=== PATIENT | female | born 1985 | race Caucasian/White ===

== ENCOUNTER 2017-11-28 22:25 | Inpatient (IN) | payer OTHER ==
[~2017-11-28] VITALS: Ht 157.5 cm; Wt 49.8 kg
--- NOTE | ~2017-11-28 | HC ---
[facility] [place] [address] CONSULTATION Name: ELISABETHNovember Room #: 206-P [facility] IN M.R.#: [id number] Admission: 11/29/17 Attend Phys: Olaf Gaitan MD Discharge: Date of : 85 Report #: [id number] THIS REPORT FOR: //name// CC: Sia Gaitan DATE OF SERVICE: 11/29/2017 NEPHROLOGY CONSULTATION ATTENDING PHYSICIAN: Dr. Gaitan. REASON FOR CONSULTATION: End-stage renal disease and hyperkalemia. HISTORY OF PRESENT ILLNESS: The patient had a PD catheter placed 8 days ago. Initially complicated by air in the PD cavity with right shoulder pain, which resolved and developing nausea, vomiting and mid-to-left lower quadrant abdominal pain, which persisted along with constipation. PAST MEDICAL HISTORY: End-stage renal disease, long-standing with thin basement membrane/Alport disease within her family with progressive chronic kidney disease, resulting in the PD catheter placement 8 days ago. She has had 3 children. FAMILY HISTORY: Strongly positive for progressive renal disease, both females and males, which is unusual for this diagnosis, including a sister who also had a biopsy that showed FSGS, which is a bit puzzling. SOCIAL HISTORY: She is a smoker and continues to smoke. Three children at home, as mentioned. REVIEW OF SYSTEMS: GENERAL: She has been feeling poorly since the PD catheter placement. EYES: Vision okay. ENT: Hearing okay, swallows okay. No mouth ulcers. ENDOCRINE: No diabetes or thyroid disease. RESPIRATORY: No shortness of breath, wheezing or pleuritic pain. CARDIAC: No chest pain, angina or palpitations. GASTROINTESTINAL: She has had the nausea, vomiting and constipation. No bloody stools. GENITOURINARY: Continues to have some urine output, without dysuria or hematuria. NEUROLOGIC: Some symptoms of neuropathy in the left foot. Extensive history taken from the patient's electronic medical record. PHYSICAL EXAMINATION: [facility] [address] [place] [address] CONSULTATION Name: ELISABETHNovember Room #: 206-P [facility] IN [facility]#: [id number] Admission: 11/29/17 Attend Phys: Olaf Gaitan MD Discharge: Date of : 85 Report #: [id number] VITAL SIGNS: This patient is reasonably well appearing, in bed. SKIN: Unremarkable. SKELETAL: Thin. HEENT: Extraocular movements are full. Vision is intact. No scleral icterus. Hearing intact. Mucous membranes moist. Tongue, buccal mucosa benign. NECK: Supple. CHEST: Clear to auscultation. HEART: Regular without murmurs, gallops or rubs. ABDOMEN: Soft, but tender and quiet, particularly in the mid and left lower quadrant. EXTREMITIES: Show no edema. Good pulses. NEUROLOGIC: Grossly intact. LABORATORY DATA: Sodium 135, potassium 6.4, chloride 101, bicarbonate 25, BUN 59 and creatinine 5.6. ASSESSMENT AND PLAN: 1. Abdominal pain, nausea and vomiting. I am somewhat concerned she might have an intra-abdominal infection. We will be checking her PD fluid. We will start her on low flow PD, try to clear her hyperkalemia and run her overnight on a continuous slow-flow PD. 2. End-stage renal disease. She was going to start PD next week anyway. This is a little bit early, but seems necessary as we need to check her PD fluid and she does seem to be uremic. 3. Cigarette smoking. DICTATION ENDS HERE. By: [id number] Mat Eid MD /nt
--- NOTE | ~2017-11-28 | EKG ---
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
[~2017-11-28 22:25] MED LIST: APAP500 PO; DERMOPLAST SPRA56 ML; FISH OIL 1,001000 M2 PO; GLUCOSAMINE SU500 M2 PO; HYDROCODON-ACE1 EAC7 PO; IBUPROFEN 600600 M1 PO; IBUPROFEN 800800 M1 PO; IRON325 PO; PRENATAL PO; TUCKS MEDICATE1 EAC1; TUMS PO; ZANTAC 150MG T150 MG PO
[2017-11-28 22:28] VITALS: BP 151/101
[2017-11-28] MEDS ORDERED: PRINIVIL20 MG PO (22:34)
[2017-11-28 22:56] LABS: BASOPHILS 0.4 % (0.0-2.0); EOSINOPHILS 6.8 % (0.0-3.0); HEMATOCRIT 36.6 % (37.0-47.0); HEMOGLOBIN 12.1 gm/dL (12.0-15.0); LYMPHOCYTES 14.1 % (24.0-44.0); MCH 29.8 pg (26.0-34.0); MCV 90.3 fL (80.0-100.0); MONOCYTES 3.8 % (1.0-8.0); PLATELET COUNT 238 thou/uL (150-400); POLYS 74.9 % (36.0-66.0); RBC 4.05 mil/uL (4.20-5.00); WBC 13.3 thou/uL (4.0-11.0)
[2017-11-28 23:03] LABS: CALCIUM 9.9 mg/dL (8.5-10.1); CREATININE 5.5 mg/dL (0.6-1.0)
[2017-11-28 23:08] LABS: POTASSIUM 6.7 mmol/L (3.5-5.1)
[2017-11-28 23:09] LABS: ALBUMIN 3.8 g/dL (3.4-5.0); TOTAL BILIRUBIN 0.3 mg/dL (<0.1-1.0); TOTAL PROTEIN 8.5 g/dL (6.4-8.2)
[2017-11-29] VITALS (7 sets, daily range): BP systolic 100–149; BP diastolic 52–90
[2017-11-29 04:27] LABS: HEMATOCRIT 28.6 % (37.0-47.0); MCH 30.8 pg (26.0-34.0); MCHC 33.9 g/dL (28.0-37.0); RBC 3.14 mil/uL (4.20-5.00); RDW 12.6 % (10.5-14.5); WBC 9.4 thou/uL (4.0-11.0)
[2017-11-29 04:42] LABS: HEMOGLOBIN 9.7 gm/dL (12.0-15.0)
[2017-11-29 04:48] LABS: ALBUMIN 2.9 g/dL (3.4-5.0); CALCIUM 8.8 mg/dL (8.5-10.1); CREATININE 5.6 mg/dL (0.6-1.0); PHOSPHORUS 3.6 mg/dL (2.5-4.9)
[2017-11-29 04:50] LABS: POTASSIUM 6.4 mmol/L (3.5-5.1)
[2017-11-29 17:09] LABS: CLARITY SLIGHTLY CLOUDY; COLOR AMBER; SOURCE PERIT DIALYSIS; TOTAL VOLUME 180 mL
[2017-11-29 18:22] LABS: BF NUCLEATED CELLS 122; BF RBC 668
[2017-11-29 18:24] LABS: BF NEUTROPHILS 11
[2017-11-29 18:25] LABS: BF MACROPHAGE 47
[2017-11-30 03:40] LABS: HEMATOCRIT 26.1 % (37.0-47.0); HEMOGLOBIN 8.7 gm/dL (12.0-15.0); MCH 30.3 pg (26.0-34.0); MCHC 33.3 g/dL (28.0-37.0); RBC 2.87 mil/uL (4.20-5.00); RDW 12.6 % (10.5-14.5); WBC 6.8 thou/uL (4.0-11.0)
[2017-11-30 03:54] LABS: ALBUMIN 2.5 g/dL (3.4-5.0); CALCIUM 8.6 mg/dL (8.5-10.1); PHOSPHORUS 4.7 mg/dL (2.5-4.9)
[2017-11-30 03:56] LABS: CREATININE 4.6 mg/dL (0.6-1.0); POTASSIUM 5.2 mmol/L (3.5-5.1)
[2017-11-30 04:12] LABS: URINE BILIRUBIN NEGATIVE (Negative); URINE BLOOD TRACE (Negative); URINE CLARITY CLEAR; URINE COLOR YELLOW; URINE GLUCOSE-RANDOM* NEGATIVE (Negative); URINE KETONES NEGATIVE (Negative); URINE LEUKOCYTES-REFLEX NEGATIVE (Negative); URINE NITRITE-REFLEX NEGATIVE (Negative); URINE PROTEIN (DIPSTICK) 2+ (Negative); URINE UROBILINOGEN 0.2 E.U./dl (0.2-1.0)
[2017-11-30 04:34] LABS: BACTERIA-REFLEX None Seen /HPF (None Seen); CASTS None Seen /LPF (None Seen); CRYSTALS None Seen /LPF (None Seen); MUCUS None Seen strn/LPF (None Seen); SQUAMOUS 0-3 Few /LPF (0-3); URINE RBC 0-2 Rare /HPF (0-2); URINE WBC-REFLEX 0-5 Rare /HPF (0-5)
[2017-11-30 05:54] VITALS: BP 121/68
[2017-11-30 08:12] VITALS: BP 142/77
[2017-11-30 11:21] VITALS: BP 121/81
[2017-11-30 15:48] VITALS: BP 131/78
[2017-11-30 19:40] VITALS: BP 140/87
[2017-12-01 03:11] LABS: HEMATOCRIT 26.9 % (37.0-47.0); HEMOGLOBIN 9.1 gm/dL (12.0-15.0); MCH 30.5 pg (26.0-34.0); MCHC 33.7 g/dL (28.0-37.0); MCV 90.5 fL (80.0-100.0); RBC 2.97 mil/uL (4.20-5.00); RDW 12.5 % (10.5-14.5)
[2017-12-01 03:27] LABS: ALBUMIN 2.6 g/dL (3.4-5.0); CALCIUM 8.6 mg/dL (8.5-10.1); CREATININE 4.7 mg/dL (0.6-1.0); PHOSPHORUS 3.9 mg/dL (2.5-4.9)
[2017-12-01 04:27] VITALS: BP 114/81
[2017-12-01 07:50] LABS: SOURCE PERITONEAL; TOTAL VOLUME 60 mL
[2017-12-01 07:51] LABS: COLOR COLORLESS
[2017-12-01 07:52] LABS: CLARITY TURBID
[2017-12-01 08:00] VITALS: BP 131/81
[2017-12-01 08:11] LABS: BF NUCLEATED CELLS 13; BF RBC 82
[2017-12-01 08:58] LABS: BF MACROPHAGE 22; BF NEUTROPHILS 2
[2017-12-01] MEDS ORDERED: PERCOCET PO (10:10)
[2017-12-01] MEDS ORDERED: MIRALAX17 GM PO (10:10)
[2017-12-01] MEDS ORDERED: SENNA-TIME S T1 EACH PO (10:10)
[2017-12-01] MEDS ORDERED: PEPCID20 MG PO (10:11)
[2017-12-01 11:36] VITALS: BP 131/81
== END 2017-12-01 12:04 | disposition home or self-care (01) | DRG 388 ==
LOC: ER 22:25 → 2N 11-29 00:17 → EROBS 11-29 00:17 → 2N 11-29 00:42 → ENTRNSPT 12-01 12:00 → 2N 12-01 12:04
PROVIDERS: Emergency Medicine; Hospitalist; Internal Medicine Nephrology; Nurse Practitioner Family
PROC: 3E1M39Z Irrigation of Peritoneal Cavity using Dialysate, Percutaneous Approach (ICD-10-PCS; principal; 2017-11-29)
PROC: 3E1M39Z Irrigation of Peritoneal Cavity using Dialysate, Percutaneous Approach (ICD-10-PCS; 2017-11-30)
DX: K56.7 Ileus, unspecified (principal); N18.6 End stage renal disease; Q87.81 Alport syndrome; K59.00 Constipation, unspecified; E87.5 Hyperkalemia; F17.210 Nicotine dependence, cigarettes, uncomplicated; Z84.1 Family history of disorders of kidney and ureter; E03.9 Hypothyroidism, unspecified
CPT/HCPCS: 10081

== ENCOUNTER 2019-01-06 12:56 | Inpatient (IN) | payer OTHER ==
[~2019-01-06] VITALS: Ht 157.5 cm; Wt 53.1 kg
[~2019-01-06 12:56] MED LIST changes: +MIRALAX17 GM PO; +PEPCID20 MG PO; +PERCOCET PO; +PRINIVIL20 MG PO; +SENNA-TIME S T1 EACH PO
[2019-01-06] MEDS ORDERED: RENVELA800 MG PO (14:37)
[2019-01-06] MEDS ORDERED: AMLODIPINE BESY10 MG PO (14:38)
[2019-01-06] MEDS ORDERED: NEPHRO-VITE TA0.8 MG PO (14:38)
[2019-01-06] MEDS ORDERED: SERTRALINE HCL50 MG PO (14:40)
[2019-01-06] MEDS ORDERED: KAPSPARGO SPRIN25 MG PO (14:40)
[2019-01-06] MEDS ORDERED: RANITIDINE 150150 M1 PO (14:41)
[2019-01-06] MEDS ORDERED: COZAAR 25 MG TA25 M1 PO ×2 (14:42→14:43)
[2019-01-06] MEDS ORDERED: SORBITOL1 ML PO (14:45)
[2019-01-06] MEDS ORDERED: MIRALAX17 GM PO (14:45)
--- NOTE | 2019-01-06 14:48 | NUR ---
REC PT AROUND 1345, PHYSICIAN VISITED W/HER, BF SHOWED UP, AND DR. CASTORENA CALLED IN WITH ORDERS STATING PD NURSE WILL SHOW UP TO ASPIRATE FLUID FOR CULTURES, LABS, ETC, ENTERED ORDERS FOR A.M. RUN. PT AMBULATES STEADY, AIRMAILED PHYSICIAN TO LET HIM KNOW MEDS AND ADMISSION DONE. PT NEEDS PAIN MEDICATION. WRAPPED IV IT'S IN THE AC AND SHE FEELS IF IT COULD COME OUT EVENTUALLY W/MOVEMENT. CALL LIGHT DEMO AND ROOM INTRO. VS TAKEN AND WITHIN HER NORM. GOT HER A SNACK; PHYSICIAN SAID SHE COULD EAT. WILL CONTINUE TO MONITOR
[2019-01-06 14:50] VITALS: BP 102/66
[2019-01-06 19:13] VITALS: BP 103/73
[2019-01-06 20:33] LABS: BASOPHILS 0.3 % (0.0-2.0); EOSINOPHILS 3.2 % (0.0-3.0); HEMATOCRIT 28.2 % (37.0-47.0); HEMOGLOBIN 9.2 gm/dL (12.0-15.0); LYMPHOCYTES 23.1 % (24.0-44.0); MCH 30.3 pg (26.0-34.0); MCHC 32.5 g/dL (28.0-37.0); MCV 93.1 fL (80.0-100.0); MONOCYTES 5.7 % (1.0-8.0); PLATELET COUNT 193 thou/uL (150-400); POLYS 67.7 % (36.0-66.0); RBC 3.03 mil/uL (4.20-5.00); RDW 15.1 % (10.5-14.5); WBC 10.3 thou/uL (4.0-11.0)
[2019-01-06 21:53] LABS: BF NUCLEATED CELLS 6; BF RBC 6; CLARITY CLEAR; COLOR COLORLESS; SOURCE PERITONEAL DIALYSATE; TOTAL VOLUME 75 mL
--- NOTE | 2019-01-07 02:38 | NUR ---
ASSUMED CARE AROUND 1900. AXOX4. ON PERITONEAL DIALYSIS. IN THE BEGINNING OF THE SHIFT, DIALYSIS NURSE WAS IN THE ROOM WITH THE PAITNET TO SET UP THE THE DIALYSIS AND WAS ABLE TO OBTAIN SMAPLE FOR LAB STUDY. ABOUT 45MINS LATER, PT C/O THE MACHINE IS NOT DRAINING. PT HAS BEEN RECEIVING THE PD ON REGULAR BASES OUTPATIENT AND VERY KNOWLEDGEABLE ON THE WHOLE PROCESS. CALLED DENTAL ASSISTANT LINE AND THE DIALYSIS NURSE NATALIE. PT DID NOT HAVE BM FOR 2DAYS AND THE DIALYSIS TEAM SUGGESTED THAT THE DRAINAGE IS NOT HAPPENING DUE TO CONSITATION. CALLED DIRECTOR ADVERTISING DENTAL ASSISTANT AND GOT AN ORDER FOR SORBITAL. UNSUSSCESSFUL. CALLED DIRECTOR ADVERTISING AGAIN FOR SUPPOSITORY, UNSUCCESSFUL. PT REFUSES ENEMA. TRIED TO EXPLAIN THE BENEFIT, STILL REFUSES. CALLED THE DIALYSIS NURSE YEYO AGAIN, WAS PAGED MULTIPLE TIMES. NO ANSWER. MANUAL DRAIN ALSO FAILED. WILL CALL IN AM AGAIN FOR . CALLED DIRECTOR ADVERTISING DENTAL ASSISTANT FOR HIMS AND EXPLAINED THE PD FAIL. AT THIS TIME, DIRECTOR ADVERTISING DOES NOT HAVE ANY RECOMMENDATIONS. VSS. PER PT, PAIN IS NOT SEVERE BEFORE. BOWEL SOUNDS PRESENT IN ALL QUADS. IV REPLACED TO L UPPER ARM PER PT REQUEST. NO S/S ACUTE DISTRESS NOTED OR REPORTED AT THIS TIME. WILL CONT TO MONITOR FOR ANY CHANGES IN CONDITION.
[2019-01-07 03:35] VITALS: BP 117/81
[2019-01-07 05:53] LABS: HEMATOCRIT 25.8 % (37.0-47.0); HEMOGLOBIN 8.7 gm/dL (12.0-15.0); MCH 31.2 pg (26.0-34.0); MCHC 33.6 g/dL (28.0-37.0); MCV 92.6 fL (80.0-100.0); RBC 2.79 mil/uL (4.20-5.00); RDW 14.7 % (10.5-14.5); WBC 9.9 thou/uL (4.0-11.0)
[2019-01-07 06:06] LABS: ALBUMIN 2.7 g/dL (3.4-5.0); CALCIUM 7.9 mg/dL (8.5-10.1); CREATININE 6.4 mg/dL (0.6-1.0); PHOSPHORUS 3.6 mg/dL (2.5-4.9); POTASSIUM 5.6 mmol/L (3.5-5.1)
[2019-01-07 08:33] VITALS: BP 127/77
--- NOTE | 2019-01-07 08:39 | NUR ---
REPORT FROM NIGHT STAFF OF [employer] NEEDED FOR PT. TO SUM IT UP, NO BM FOR TWO DAYS AND THEY THOUGHT THIS WAS D/T HER BEING CONSTIPATED, REPORT OF KUB SHOWING CONSTIPATION. PO ORDERED PT DECLINED TAP WATER ENEMA. SPOKE WITH PHYSICIAN WHO GAVE BRIEF LESSON ABOUT DIALYSIS AND PARTICULAR LABS, ORDERED PO FOR BOWEL MANAGEMENT. MULTIPLEX OPERATOR STRONGLY SUGGESTED TO WAIT FOR DR. CASTORENA WHO PUT IN ORDERS FOR TEMP DIALYSIS PORT FOR HEMO AND TO HAVE FLUID REMOVED FROM PERITONEAL DIALYSIS SITE. NO CONSENTS PRINTED OUT WITH ACKNOWLEDGEMENT OF ORDERS. WILL SPEAK WITH PT ON NPO STATUS AND PAIN MANAGEMENT AND ENCOURAGEMENT. WILL CONTINUE TO MONITOR
[2019-01-07 11:14] LABS: MAGNESIUM 1.4 mg/dL (1.8-2.4); POTASSIUM 5.1 mmol/L (3.5-5.1)
--- NOTE | 2019-01-07 11:19 | NUR ---
PT DID NOT RECEIVE MORPHINE SULFATE IV IT WAS AN HOUR TOO EARLY, RETURNED TO PHARMACY STAFF WHO CAME UPSTAIRS SPECIFICALLY.
[2019-01-07 13:14] LABS: CLARITY CLOUDY; COLOR YELLOW; SOURCE PARACENTESIS; TOTAL VOLUME 62 mL
[2019-01-07 13:16] LABS: SOURCE PARACENTESIS
[2019-01-07 13:47] LABS: BF NUCLEATED CELLS 5143; BF RBC 416
[2019-01-07 14:07] LABS: BF MACROPHAGE 7; BF NEUTROPHILS 89
--- NOTE | 2019-01-07 14:30 | NUR ---
tried to visit with pt x 2, she out of room for procedure/test. will cont following as needed for dc needs.
[2019-01-07 15:58] VITALS: BP 115/74
--- NOTE | 2019-01-07 17:00 | NUR ---
chart review. pt back in room from procedure/test. pt is a A & o x 3, and able to make her needs know. intro to cm, transition of care. pt leaning forward in bed sitting up. offered to assist her with bed mobility to lay back in bed. " cant lay back with this in my neck, not liking it"/november. place pillow behind her back and she laid back little. noted tears during visit, offered to get bedside nurse. noted pt using calling to ask for pain medication. offered to come back later after she rest " no it is fine, live in 4 plex with 3 kids, have support from sister, boyfriend and friend. independent when feeling ok. home dialysis through [facility], dr maldonado my dr. no rehab or hh. sister watching kids while here. sister already had kidney transplant. i have to reapply for disability. never driven before. family or friend drive me to run errand if needed and dr appointments"/pt. offered to have human arc visit with her and she declined. cm passed on report to bedside nurse rt pain and tears during visit. will cont following as needed for dc needs.
[2019-01-07 19:32] VITALS: BP 132/57
[2019-01-08 03:15] VITALS: BP 127/62
--- NOTE | 2019-01-08 05:38 | NUR ---
Pt. rested quietly at intervals during the night when checked on during frequent rounds. She has been given pain meds for c/o a headache and right sided neck pain (see emar) with some relief noted.
[2019-01-08 05:50] LABS: ABSOLUTE NEUTROPHILS 4.2 thou/uL (1.4-8.2); BASOPHILS 0.3 % (0.0-2.0); EOSINOPHILS 4.1 % (0.0-3.0); HEMATOCRIT 24.7 % (37.0-47.0); HEMOGLOBIN 8.1 gm/dL (12.0-15.0); LYMPHOCYTES 17.2 % (24.0-44.0); MCH 30.1 pg (26.0-34.0); MCHC 32.9 g/dL (28.0-37.0); MCV 91.6 fL (80.0-100.0); MONOCYTES 8.2 % (1.0-8.0); PLATELET COUNT 129 thou/uL (150-400); POLYS 70.2 % (36.0-66.0); RDW 14.8 % (10.5-14.5); WBC 5.9 thou/uL (4.0-11.0)
[2019-01-08 06:06] LABS: ALBUMIN 2.3 g/dL (3.4-5.0); PHOSPHORUS 4.6 mg/dL (2.5-4.9); POTASSIUM 4.8 mmol/L (3.5-5.1)
[2019-01-08 06:10] LABS: CREATININE 4.1 mg/dL (0.6-1.0)
[2019-01-08 07:22] VITALS: BP 140/94
[2019-01-08 13:57] VITALS: BP 135/95
--- NOTE | 2019-01-08 14:42 | NUR ---
CARE TEAM INDICATED THAT PT WAS HAVING TEM DIALYSIS CATHETER PLACED TOMORROW AND THAT PT WILL NEED OP HEMODIALYSIS SERVICES ESTABLISHED FOR UPON DC. KEVIN MET WITH PT AT SHE INDICATED THAT SHE WOULD LIKE TO GO TO THE [facility] IT'S CLOSER TO WHERE SHE LIVES AND THAT SHE WOULD HAVE TRANSPORTATION AVAILABLE TO HER AFTER 9AM MOST DAYS. CM FAXED REFERRAL TO BEN WITH INTAKE AT [facility]. CM CALLED AND LEFT VM TO CONFIRM RECIEPT. CM TO FOLLOW INDICATED WITH DC PLANNING.
--- NOTE | 2019-01-08 14:51 | NUR ---
Received awake on bed. Due medications given as prescribed. Complained of pain, due PRN medication given as prescribed. A+Ox4. Ambulating independently. With IJ cath at right, dressing checked- dry and intact. On room air. Vital signs stable. Stil with PD cath attached. Seen by Dr. Eid- to discuss with Dr. Mickey masters: cath removal- a/w schedule. HD came in asked about update- informed her that patient has IJ cath in place, had dialysis last night, as per HD nurse, pt will have dialysis today.
[2019-01-08 15:07] LABS: BODY FLUID ALBUMIN 0.3 g/dL (()); BODY FLUID AMYLASE 4 U/L (()); BODY FLUID GLUCOSE 109 mg/dL (()); BODY FLUID LDH 89 IU/L (()); BODY FLUID PROTEIN 0.8 g/dL (())
[2019-01-08 19:12] VITALS: BP 105/69
[2019-01-09 04:10] VITALS: BP 135/94
--- NOTE | 2019-01-09 05:09 | NUR ---
Pt. rested quietly at intervals during the night when checked on during frequent rounds. She did c/o a headache and requested some excedrin. Mindy TAO notified with a one time order (see cpoe). Excedrin given (see emar) with some relief noted. This am pt. c/o right sided neck pain and nausea. Anti- nausea and iv morphine given (see emar) with some relief noted.
[2019-01-09 06:23] LABS: ALBUMIN 2.5 g/dL (3.4-5.0); CALCIUM 8.7 mg/dL (8.5-10.1); PHOSPHORUS 4.7 mg/dL (2.5-4.9); POTASSIUM 5.3 mmol/L (3.5-5.1)
[2019-01-09 06:24] LABS: CREATININE 5.8 mg/dL (0.6-1.0)
[2019-01-09 16:00] VITALS: BP 129/89
[2019-01-09 16:15] VITALS: BP 126/86
[2019-01-09 17:07] LABS: HEPATITIS B SURFACE AG Negative (Negative)
[2019-01-09 19:11] VITALS: BP 130/86
--- NOTE | 2019-01-09 19:16 | NUR ---
pt stable throughout shift. pt had dialysis this morning which she tolerated well then went for procedure to remove dialysis catheter. pt tolerated porcedure well also. pt advanced to renal diet. pt c/o back, neck and abdoment pain which was addressed with medication. pt sleeping.
--- NOTE | 2019-01-10 03:32 | NUR ---
progress pt a/o x4 walking independently in room. reports headache and requested excedrin given with effect pt sleeping after. left neck hemodialysis cath wrapped with gauze site covered with transparent dressing site c/d/i with no s/s of infection noted. labs remain abnormal to have hemodialysis tomorrow.tolerating diet and drinking in adequate amounts continue poc.
[2019-01-10 04:41] VITALS: BP 132/80
[2019-01-10 08:40] VITALS: BP 129/90
--- NOTE | 2019-01-10 13:06 | PATH ---
[facility] [address] [place] [address] PATHOLOGY RPT PROCEDURE Name: ELISABETHNovember Room #: 449-I ADM IN M.R.#: [id number] ������������������ Admission: 01/06/19 ������������������ Date of : 85 Discharge: Report #: [id number] Path Case #: [id number] Note [facility] Accession Number: [id number] TESTS RESULT FLAG UNITS REF RANGE LAB Clinician Provided Cytology Information No. of containers..01 Other (Miscellaneous) Source: RIGHT ABDOMEN FLUID DIAGNOSIS: 02 RIGHT ABDOMEN FLUID NEGATIVE FOR MALIGNANT CELLS. MESOTHELIAL CELLS ARE PRESENT. THIS INTERPRETATION INCLUDES EVALUATION OF A CELL BLOCK. MARKED ACUTE INFLAMMATION CONSISTENT WITH AN EXUDATE. Pathologist ICD10: 02 K65.9 Signed out by: Stia Biggs MD, Pathologist NPI- [id number] Performed by: Sherman Turk, Glue Spreader ([facility]) Gross description: 01 20ML, PALE YELLOW, CLOUDY /LCS FLAG LEGEND: L-Low Normal,H-High Normal,LL-Alert Low,HH-Alert High <-Panic Low,>-Panic High,A-Abnormal,AA-Critical Abnormal Performed at: [address] [place] [address] Ubaldo Vargas MD, [address] [address] Sita Biggs MD, Specimen Comment: A courtesy copy of this report has been sent to Specimen Comment: [phone], . Specimen Comment: Report sent to / DR DELAROSA Specimen Comment: A duplicate report has been generated due to demographic updates. Performed at: [address], [place], [place] [id number] MD Ubaldo Vargas MD Phone: [phone]
[2019-01-10 15:10] VITALS: BP 126/84
--- NOTE | 2019-01-10 16:26 | NUR ---
KEVIN FAXED HEP PANEL RESULTS TO BEN AT INTAKE AT [facility]. KEVIN SPOKE WIHT PT AND SHE INDICATED SHE WOULD PREFER A MWF SCHEDULE. KEVIN CALLED BEN AND NOTIFIED HER. PT IS TO HAVE HER TUNNELED CATHETER PLACE TOMORROW. CM TO FOLLOW INDICATED WITH DC PLANNING.
[2019-01-10 17:40] LABS: APTT 30.9 Seconds (24.5-32.8); FIBRINOGEN 517.3 mg/dL (210-360)
--- NOTE | 2019-01-10 19:13 | NUR ---
ASSUMED CARE 0700. A/OX4, PAIN MANAGED WITH MEDICATIONS, CENTRAL LINE IN NECK REMOVED BY IV NURSE. NPO FOR IR DIALYSIS TUNNEL PLACEMENT. CALL LIGHT IN REACH. CONTINUE TO MONITOR
[2019-01-10 19:15] VITALS: BP 125/82
[2019-01-11 03:40] VITALS: BP 135/100
[2019-01-11 06:06] LABS: ALBUMIN 2.3 g/dL (3.4-5.0); CALCIUM 8.3 mg/dL (8.5-10.1); CREATININE 5.1 mg/dL (0.6-1.0); PHOSPHORUS 3.5 mg/dL (2.5-4.9); POTASSIUM 5.6 mmol/L (3.5-5.1)
--- NOTE | 2019-01-11 08:05 | NUR ---
progress pt pain is slowly improving not asking for medicine as often, up ad bryson, incisions to abdomen and dialysis catheterin neck site sealed with plastic and pt showered. npo after midnight 2 excedrins given for headache with a small sip of water after midnight with effect pt slept remainder of shift. bp elevated but she reports that it is normal for her. plan for the day is to have dialysis tunneled cath placed and then have dialysis. pt hopes to discharge home after.
[2019-01-11 08:15] VITALS: BP 131/90
--- NOTE | 2019-01-11 12:48 | NUR ---
ASSUMED CARE 0700. IR PLACED DIALYSIS TUNNEL PORT THIS MORNING. MANAGING PAIN WITH MEDICATIONS, CURRENTLY IN DIALSYS. PLANS TO DC HOME POST DIAYLSYS AND LAST IV ANTIBIOTIC MEDICATIONS.
[2019-01-11 14:06] VITALS: BP 131/90
--- NOTE | 2019-01-11 14:08 | NUR ---
CARE TEAM INDICATED THAT PT WILL BE MEDICALLY STABLE TO DISCHARGE HOME THIS DAY AFTER DIALYSIS. PT HAD HER TUNNELED CATHETER PLACED THIS DAY. PT IS ESTABLISHED WITH OP HEMO DIALYSIS AT [facility] 10:30 CHAIR TIME. NO OTHER CM INTERVENTION INDICATED AT THIS TIME. CASE CLOSED.
[2019-01-11] MEDS ORDERED: NORCO 5-325 TA1 EACH PO (18:41)
== END 2019-01-11 19:00 | disposition home or self-care (01) | DRG 314 ==
LOC: 4W 12:56 → ENTRNSPT 01-10 13:32 → EDTRNSPTSTS 01-10 13:40 → 4W 01-11 19:00
PROVIDERS: Internal Medicine; Internal Medicine Nephrology; ADMIT Hospitalist
PROC: B5181ZA Fluoroscopy of Superior Vena Cava using Low Osmolar Contrast, Guidance (ICD-10-PCS; principal; 2019-01-07)
PROC: 02HV33Z Insertion of Infusion Device into Superior Vena Cava, Percutaneous Approach (ICD-10-PCS; principal; 2019-01-07)
PROC: 0W9G3ZZ Drainage of Peritoneal Cavity, Percutaneous Approach (ICD-10-PCS; principal; 2019-01-07)
PROC: B548ZZA Ultrasonography of Superior Vena Cava, Guidance (ICD-10-PCS; principal; 2019-01-07)
PROC: 5A1D70Z Performance of Urinary Filtration, Intermittent, Less than 6 Hours Per Day (ICD-10-PCS; principal; 2019-01-07)
PROC: 5A1D70Z Performance of Urinary Filtration, Intermittent, Less than 6 Hours Per Day (ICD-10-PCS; 2019-01-09)
PROC: 0WPGX3Z Removal of Infusion Device from Peritoneal Cavity, External Approach (ICD-10-PCS; 2019-01-09)
PROC: 5A1D70Z Performance of Urinary Filtration, Intermittent, Less than 6 Hours Per Day (ICD-10-PCS; 2019-01-10)
PROC: B548ZZA Ultrasonography of Superior Vena Cava, Guidance (ICD-10-PCS; 2019-01-11)
PROC: 0JH63XZ Insertion of Tunneled Vascular Access Device into Chest Subcutaneous Tissue and Fascia, Percutaneous Approach (ICD-10-PCS; 2019-01-11)
PROC: B5181ZA Fluoroscopy of Superior Vena Cava using Low Osmolar Contrast, Guidance (ICD-10-PCS; 2019-01-11)
PROC: 02HV33Z Insertion of Infusion Device into Superior Vena Cava, Percutaneous Approach (ICD-10-PCS; 2019-01-11)
DX: T82.7XXA Infection and inflammatory reaction due to other cardiac and vascular devices, implants and grafts, initial encounter (principal); N18.6 End stage renal disease; K65.8 Other peritonitis; Q87.81 Alport syndrome; F17.210 Nicotine dependence, cigarettes, uncomplicated; D72.829 Elevated white blood cell count, unspecified; E05.90 Thyrotoxicosis, unspecified without thyrotoxic crisis or storm; E87.5 Hyperkalemia; Y84.1 Kidney dialysis as the cause of abnormal reaction of the patient, or of later complication, without mention of misadventure at the time of the procedure; Z71.6 Tobacco abuse counseling; Y92.89 Other specified places as the place of occurrence of the external cause
CPT/HCPCS: 10047; 32100; 33000; 50010; 50101; 50386; 50403; 54118; 56524; 56526; 62110; 62850; 70005

== ENCOUNTER 2019-01-16 22:28 | Emergency (ER) | payer OTHER ==
[~2019-01-16] VITALS: Ht 157.5 cm; Wt 50.6 kg
[~2019-01-16 22:28] MED LIST changes: +AMLODIPINE BESY10 MG PO; +COZAAR 25 MG TA25 M1 PO; +KAPSPARGO SPRIN25 MG PO; +NEPHRO-VITE TA0.8 MG PO; +NORCO 5-325 TA1 EACH PO; +RANITIDINE 150150 M1 PO; +RENVELA800 MG PO; +SERTRALINE HCL50 MG PO; +SORBITOL1 ML PO
[2019-01-17 00:01] LABS: CALCIUM 8.8 mg/dL (8.5-10.1); CREATININE 6.6 mg/dL (0.6-1.0)
[2019-01-17 00:14] VITALS: BP 160/98
== END 2019-01-17 00:15 | disposition home or self-care (01) ==
LOC: ER 22:28
PROVIDERS: Student in an Organized Health Care Education/Training Program
DX: Z49.01 Encounter for fitting and adjustment of extracorporeal dialysis catheter (principal); E03.9 Hypothyroidism, unspecified; F17.210 Nicotine dependence, cigarettes, uncomplicated

== ENCOUNTER 2019-02-09 22:39 | Emergency (ER) | payer OTHER ==
[~2019-02-09] VITALS: Ht 157.5 cm; Wt 49.9 kg
[2019-02-10 00:31] LABS: MCH 30.6 pg (26.0-34.0); MCHC 33.3 g/dL (28.0-37.0); MCV 91.9 fL (80.0-100.0); RBC 3.27 mil/uL (4.20-5.00); RDW 15.7 % (10.5-14.5); WBC 8.9 thou/uL (4.0-11.0)
[2019-02-10 00:57] LABS: CALCIUM 8.6 mg/dL (8.5-10.1); CREATININE 7.8 mg/dL (0.6-1.0); POTASSIUM 5.1 mmol/L (3.5-5.1)
[2019-02-10] MEDS ORDERED: NORCO 5-325 TA1 EAC1 PO (01:18)
[2019-02-10 01:33] VITALS: BP 152/99
== END 2019-02-10 01:33 | disposition home or self-care (01) ==
LOC: ER 22:39
PROVIDERS: Emergency Medicine
DX: S92.412A Displaced fracture of proximal phalanx of left great toe, initial encounter for closed fracture (principal); W22.8XXA Striking against or struck by other objects, initial encounter; Y93.89 Activity, other specified; Y92.89 Other specified places as the place of occurrence of the external cause; Y99.8 Other external cause status; N19 Unspecified kidney failure; E05.90 Thyrotoxicosis, unspecified without thyrotoxic crisis or storm; F17.210 Nicotine dependence, cigarettes, uncomplicated

== ENCOUNTER 2019-05-12 12:27 | Emergency (ER) | payer OTHER ==
[~2019-05-12] VITALS: Ht 157.5 cm; Wt 53.5 kg
[~2019-05-12 12:27] MED LIST changes: +NORCO 5-325 TA1 EAC1 PO
[2019-05-12] MEDS ORDERED: PAXIL10 MG PO (12:50)
[2019-05-12 13:35] LABS: BASOPHILS 1.1 % (0.0-2.0); EOSINOPHILS 9.1 % (0.0-3.0); HEMATOCRIT 24.7 % (37.0-47.0); HEMOGLOBIN 8.2 gm/dL (12.0-15.0); LYMPHOCYTES 22.6 % (24.0-44.0); MCH 30.8 pg (26.0-34.0); MCHC 33.3 g/dL (28.0-37.0); MCV 92.5 fL (80.0-100.0); MONOCYTES 6.9 % (1.0-8.0); PLATELET COUNT 105 thou/uL (150-400); POLYS 60.3 % (36.0-66.0); RBC 2.67 mil/uL (4.20-5.00); RDW 13.9 % (10.5-14.5); WBC 6.7 thou/uL (4.0-11.0)
[2019-05-12 13:52] LABS: ANION GAP 18 mmol/L (7-16); BUN 83 mg/dL (7-18); CHLORIDE 105 mmol/L (98-107); CO2 17 mmol/L (21-32); CREATININE 15.7 mg/dL (0.6-1.0); GLUCOSE 94 mg/dL (74-106); POTASSIUM 5.6 mmol/L (3.5-5.1); SODIUM 140 mmol/L (136-145)
[2019-05-12 13:59] LABS: ALBUMIN 3.4 g/dL (3.4-5.0); DIRECT BILIRUBIN < 0.1 mg/dL (<0.1-0.3); LIPASE 300 U/L (73-393); SGOT 10 U/L (15-37); SGPT 14 U/L (30-65); TOTAL BILIRUBIN 0.2 mg/dL (<0.1-1.0); TOTAL PROTEIN 6.7 g/dL (6.4-8.2)
[2019-05-12 14:58] LABS: URINE BILIRUBIN NEGATIVE (Negative); URINE BLOOD 3+ (Negative); URINE CLARITY CLEAR; URINE COLOR YELLOW; URINE GLUCOSE-RANDOM* TRACE (Negative); URINE KETONES NEGATIVE (Negative); URINE LEUKOCYTES-REFLEX NEGATIVE (Negative); URINE NITRITE-REFLEX NEGATIVE (Negative); URINE PROTEIN (DIPSTICK) 3+ (Negative); URINE SPECIFIC GRAVITY 1.015 (1.005-1.035); URINE UROBILINOGEN 0.2 E.U./dl (0.2-1.0)
[2019-05-12 15:12] LABS: BACTERIA-REFLEX None Seen /HPF (None Seen); CASTS None Seen /LPF (None Seen); CRYSTALS None Seen /LPF (None Seen); MUCUS None Seen strn/LPF (None Seen); SQUAMOUS 0-3 Few /LPF (0-3); URINE WBC-REFLEX None Seen /HPF (0-5)
[2019-05-12 17:27] VITALS: BP 178/118
== END 2019-05-12 17:28 | disposition home or self-care (01) ==
LOC: ER 12:27
PROVIDERS: Emergency Medicine
DX: L03.313 Cellulitis of chest wall (principal); E05.90 Thyrotoxicosis, unspecified without thyrotoxic crisis or storm

== ENCOUNTER 2019-06-02 16:10 | Inpatient (IN) | payer OTHER ==
[~2019-06-02] VITALS: Ht 157.5 cm; Wt 54.0 kg
[~2019-06-02 16:10] MED LIST changes: +PAXIL10 MG PO
[2019-06-02 16:12] VITALS: BP 154/94
[2019-06-02 17:07] LABS: MCH 29.8 pg (26.0-34.0); MCHC 32.9 g/dL (28.0-37.0); MCV 90.6 fL (80.0-100.0); RBC 1.76 mil/uL (4.20-5.00); WBC 8.1 thou/uL (4.0-11.0)
[2019-06-02 17:09] LABS: ABSOLUTE NEUTROPHILS 4.3 thou/uL (1.4-8.2); BASOPHILS 0.6 % (0.0-2.0); LYMPHOCYTES 28.4 % (24.0-44.0); MONOCYTES 7.8 % (1.0-8.0); PLATELET COUNT 162 thou/uL (150-400); POLYS 53.2 % (36.0-66.0)
[2019-06-02 17:10] LABS: ANION GAP 20 mmol/L (7-16); BUN 137 mg/dL (7-18); CALCIUM 7.7 mg/dL (8.5-10.1); CHLORIDE 98 mmol/L (98-107); CO2 14 mmol/L (21-32); CREATININE 19.6 mg/dL (0.6-1.0); GLUCOSE 95 mg/dL (74-106); POTASSIUM 4.4 mmol/L (3.5-5.1); SODIUM 132 mmol/L (136-145)
[2019-06-02 17:17] LABS: DIRECT BILIRUBIN 0.1 mg/dL (<0.1-0.3); LIPASE 478 U/L (73-393); SGOT 12 U/L (15-37); TOTAL BILIRUBIN 0.3 mg/dL (<0.1-1.0); TOTAL PROTEIN 6.2 g/dL (6.4-8.2)
[2019-06-02 17:19] LABS: SGPT < 6 U/L (30-65)
[2019-06-02 17:29] LABS: HEMATOCRIT 15.9 % (37.0-47.0); HEMOGLOBIN 5.2 gm/dL (12.0-15.0)
[2019-06-02 17:46] LABS: URINE BILIRUBIN NEGATIVE (Negative); URINE BLOOD 2+ (Negative); URINE CLARITY CLEAR; URINE COLOR YELLOW; URINE GLUCOSE-RANDOM* TRACE (Negative); URINE KETONES NEGATIVE (Negative); URINE LEUKOCYTES-REFLEX NEGATIVE (Negative); URINE NITRITE-REFLEX NEGATIVE (Negative); URINE PROTEIN (DIPSTICK) 2+ (Negative); URINE SPECIFIC GRAVITY 1.015 (1.005-1.035); URINE UROBILINOGEN 0.2 E.U./dl (0.2-1.0)
[2019-06-02 18:10] LABS: CASTS None Seen /LPF (None Seen); SQUAMOUS 4-10 Moderate /LPF (0-3)
[2019-06-02 18:11] LABS: BACTERIA-REFLEX None Seen /HPF (None Seen); CRYSTALS None Seen /LPF (None Seen); URINE RBC 3-10 Few /HPF (0-2); URINE WBC-REFLEX 0-5 Rare /HPF (0-5)
[2019-06-02 18:41] VITALS: BP 145/87
[2019-06-02 18:51] LABS: % SATURATION 77 % (20-39); IRON 157 ug/dL (50-170); TIBC 205 ug/dL (250-450)
[2019-06-02 18:57] LABS: OBSERVED RETIC COUNT 2.05 % (0.6-2.6)
[2019-06-02 19:04] VITALS: BP 156/104
[2019-06-02 19:30] VITALS: BP 131/89
--- NOTE | 2019-06-03 03:00 | NUR ---
PATIENT AOX4 MAKES NEEDS KNOWN. PATIENT AMBULATES TO THE BATHROOM WITH STEADY GAITS. PATIENT HAS LOW HGB 5.2 LAB CALLED D/T BLOOD NOT BEING AVAILABLE. PATIENT HAS BEEN NPO SINCE MIDNIGHT. FALL PRECAUTION IN PLACE D/T LOW HGB. PATIENT EDUCATED TO CALL FOR ASSISTANCE AT ALL TIMES. PATIENT IN BED ASLEEP AT THIS TIME BREATHING REGULAR AND UNLABOURED.
[2019-06-03 04:25] VITALS: BP 172/103
[2019-06-03 06:15] LABS: MCH 29.8 pg (26.0-34.0); MCV 90.3 fL (80.0-100.0); RBC 1.84 mil/uL (4.20-5.00); RDW 14.1 % (10.5-14.5); WBC 8.5 thou/uL (4.0-11.0)
[2019-06-03 06:17] LABS: HEMOGLOBIN 5.5 gm/dL (12.0-15.0)
[2019-06-03 06:18] LABS: HEMATOCRIT 16.6 % (37.0-47.0)
[2019-06-03 06:31] LABS: CALCIUM 7.7 mg/dL (8.5-10.1); CREATININE 20.4 mg/dL (0.6-1.0); POTASSIUM 4.7 mmol/L (3.5-5.1)
[2019-06-03 06:39] LABS: PHOSPHORUS 10.5 mg/dL (2.5-4.9)
[2019-06-03 07:09] VITALS: BP 151/94
--- NOTE | 2019-06-03 12:25 | NUR ---
Assumed pt care at 7am.Pt in bed resting.Assessment completed.Pt still in denial and refused to take care of herself.According to pt,the last time she went for dialysis was a month ago.Emotional support given and also education on hemodialysis and its implications.Dr Hills and Kesha here,order noted. Pt in bed receiving hemodialysis now and will get 1 unit of blood today whenever it's ready.Tylenol po given for headache with relief.Will continue to monitor.
[2019-06-03 15:27] VITALS: BP 143/85
--- NOTE | 2019-06-03 15:28 | NUR ---
PT ADMITTED RELATED TO ESRD, SYMPTOMIC ANEMIA. CM REVIEWED CHART AND SPOKE WITH CARE TEAM. CM MET WITH PT AND MOTHER AT BEDSIDE THIS DAY. PT IS A&O X4. PT WAS AWARE THAT PROCESS SAFETY MANAGEMENT ENGINEER WAS GOING TO ISSUE A 30 DAY NOTICE THAT HE WILL NOT FOLLOW PT AT OP HD AFTER 30 DAYS. CM CALLED OVER TO [facility] AND THEY INDICATED THAT PT WILL STILL HAVE SCHEDULE OF MWF 10:30 UPON DC AND THAT THEY WILL PROVIDE PT SERVICES WHENEVER PT COMES ALTHOUGH SHE HAD ONLY BEEN THERE 5-4 TIMES IN THE LAST 5 MONTHS. CM INFORMED PT AND MOTHER OF THIS THEY ARE AWARE AND AGREEABLE. PT IS HAVING DIALYSIS TODAY AND RECIEVING PRBC. PT AND MOTHER INDICATED THAT PT IS HEARING VOICES. CM INDICATED THAT DR. SAENZ HAS BEEN CONSULTED. CM TO FOLLOW INDICATED WITH DC PLANNING.
[2019-06-03 16:38] VITALS: BP 156/91; BP 181/91
[2019-06-03 19:44] VITALS: BP 189/85
[2019-06-03 20:54] VITALS: BP 156/91
[2019-06-04 04:02] VITALS: BP 135/77
[2019-06-04 05:40] LABS: HEMATOCRIT 21.5 % (37.0-47.0); HEMOGLOBIN 7.3 gm/dL (12.0-15.0); MCH 30.2 pg (26.0-34.0); MCHC 33.8 g/dL (28.0-37.0); MCV 89.3 fL (80.0-100.0); RBC 2.41 mil/uL (4.20-5.00); RDW 13.7 % (10.5-14.5); WBC 7.7 thou/uL (4.0-11.0)
--- NOTE | 2019-06-04 05:48 | NUR ---
PT IS A/O X4 ASSUMED CARE WITH BLOOD TRANSFUSION.BLLOD FINISHED AND POST TRANSFUSION H$H DONE.HGB 7.0.PT REFUSING HAVING DIABETES AND CONCERNED ABOUT THE BLOOD GLUCOSE BEING DONE ON HER.PT HAD ICECREAM AND JUICE AND WAS EDUCATED ON FLUID INTAKE DUE TO CKD.PT IS ON DIALYSIS MONDAY,MONDAY AND MONDAY.PT IS UP AD HEIDI.PT WAS TO KNOW IF SHE CAN TAKE A SHOWER TODAY.CONTINUE POC
[2019-06-04 07:28] VITALS: BP 136/72
[2019-06-04] MEDS ORDERED: REMERON15 MG PO (11:01)
[2019-06-04] MEDS ORDERED: PAXIL 20 MG TAB20 M1 PO (11:01)
--- NOTE | 2019-06-04 12:52 | NUR ---
Following for d/c planning needs. Received message from RN stating radio mechanic helper will only follow pt for another 30 days at [facility] dialysis clinic in [place]. Called clinic and spoke with intake. She said they would find new clinic for pt. Asked emergency planner to fax packet to [facility]. No other needs identified.
--- NOTE | 2019-06-04 13:50 | NUR ---
dp will fax referral to [facility], including flow sheets.
[2019-06-04 15:13] VITALS: BP 136/72
--- NOTE | 2019-06-04 16:16 | NUR ---
ASSUMED CARE AT 0700, SHIFT ASSESSMENT DONE, MEDS GIVEN, VSS. PER DR SOFIA PT CAN DISCHARGE. DR HUNTER NOTIFIED. DISCHARGE ORDER RECEIVED, PERIPHERAL IV WAS TAKEN OUT. CASE MANAGEMENT NOTIFED, THEY GOT IN TOUCH WITH [facility] TO SET UP HER DIALYSIS. PT WILL NEED TO FOLLOW UP WITH SOCIAL WORK OVER THERE TO FIND A NEW PROVIDER FOR DIALYSIS WITHIN 30 DAYS.
--- NOTE | 2019-06-11 08:39 | HC ---
[facility] [place] [address] CONSULTATION Name: ASHWIN BARBER Room #: 455-P [facility] IN M.R.#: [id number] Admission: 06/02/19 Attend Phys: Savanna Rebolledo Discharge: 06/04/19 Date of : 85 Report #: [id number] THIS REPORT FOR: //name// CC: Sia Rebolledo DATE OF SERVICE: 06/03/2019 REASON FOR CONSULTATION: End-stage renal disease. REASON FOR PRESENTATION: Numerous complaints including nausea, vomiting, headache, concerned about her left arm after an AV fistula, abdominal pain after the peritoneal catheter was placed. HISTORY OF PRESENT ILLNESS: A well-known patient to me. 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 She had been on peritoneal dialysis in the past. This was complicated by peritonitis mandating extraction of her peritoneal dialysis catheter, switching her to hemodialysis. Unfortunately, the patient has been extremely noncompliant. She had not shown up to her hemodialysis unit except 2 times in the last couple of months. We have attempted to address her social issues on numerous occasions with no improvement in her compliance. She continued to have major noncompliance issues, not showing up for her dialysis, not receiving her medication that she is supposed to receive with hemodialysis. She kept coming up with different excuses for not showing up to her dialysis. We have consulted our social work therapist. I have also talked with her family members including her mom about her behavior with no improvement at all. She presented with the above-mentioned complaint and was found to be extremely anemic with a hemoglobin of 5.2. BUN was elevated at 144 and a creatinine was also high at 12.4 with phosphorus of 10.5. The patient was admitted to be medically stabilized. I am consulted to manage her end-stage renal disease. PAST MEDICAL HISTORY: 1. End-stage renal disease. 2. Alport syndrome. 3. Chronic anemia. 4. Hypertension. 5. Remote history of peritonitis. 6. Post-peritoneal dialysis catheter placement. 7. Hyperparathyroidism. 8. Recent AV fistula. 9. Recent PD catheter insertion. 10. Tunneled IJ catheter. FAMILY HISTORY: Significant for Alport disease. One of her sister is on dialysis. [facility] [address] [place] [address] CONSULTATION Name: ASHWIN BARBER Room #: 455-P [facility] IN M.R.#: [id number] Admission: 06/02/19 Attend Phys: Savanna Rebolledo Discharge: 06/04/19 Date of : 85 Report #: [id number] MEDICATIONS: 1. Amlodipine. 2. Metoprolol. 3. Losartan. 4. Paroxetine. ALLERGIES: None. REVIEW OF SYSTEMS: GENERAL: Significant for weakness and lethargy. CARDIOVASCULAR: Significant for shortness of breath. PULMONARY: No cough or hemoptysis. GASTROINTESTINAL: Significant for nausea and vomiting. GENITOURINARY: She still makes urine. HEMATOLOGICAL: Significant for dizziness. SKIN: No rash or ulcerations, but she had bruises over the left upper extremity after her AV fistula. She also had some skin irritation around her PD catheter. PHYSICAL EXAMINATION: GENERAL: Alert, oriented. Facial edema present. VITAL SIGNS: Temperature 37.2. Blood pressure 151/94. HEAD AND NECK: No jugular venous distention but facial edema is present. CHEST: Right IJ catheter. CARDIOVASCULAR: No rub detected. ABDOMEN: Soft, nontender. PD catheter in place. EXTREMITIES: Lower extremities: No edema. Upper extremities: Left AV fistula with bruits upper extremity. LABORATORY DATA: Reviewed. Hemoglobin is 5.5. Sodium is 138, BUN is 144, creatinine is 20.4, phosphorus is 10.5. ASSESSMENT, IMPRESSION AND PLAN: 1. End-stage renal disease. 2. Extreme noncompliance with medical care, endangering the patient's wellbeing. 3. Anemia. 4. Recent AV fistula placement with bruising of her left upper extremity. 5. Recent PD catheter placement. 6. We will arrange for the patient to have hemodialysis today. 7. Transfusion with hemodialysis. 8. Continue to counseling program leader about her noncompliance. [facility] [address] [place] [address] CONSULTATION Name: ASHWIN BARBER Room #: 455-P [facility] IN M.R.#: [id number] Admission: 06/02/19 Attend Phys: Savanna Rebolledo Discharge: 06/04/19 Date of : 85 Report #: [id number]. No need for GI consultation at this time. Her anemia is all related to her noncompliance, not showing up to receive her erythropoietin. <ELECTRONICALLY SIGNED> By: Sheri Rodriguez MD 06/11/19 0839 2038 Sheri Rodriguez MD /nt
== END 2019-06-04 16:19 | disposition home or self-care (01) | DRG 919 ==
LOC: ER 16:10 → 4W 18:23 → EROBS 18:23 → 4W 19:23
PROVIDERS: Emergency Medicine; ADMIT Hospitalist
PROC: 30233N1 Transfusion of Nonautologous Red Blood Cells into Peripheral Vein, Percutaneous Approach (ICD-10-PCS; principal; 2019-06-03)
PROC: 5A1D70Z Performance of Urinary Filtration, Intermittent, Less than 6 Hours Per Day (ICD-10-PCS; principal; 2019-06-03)
DX: T85.71XA Infection and inflammatory reaction due to peritoneal dialysis catheter, initial encounter (principal); N18.6 End stage renal disease; E43 Unspecified severe protein-calorie malnutrition; Q87.81 Alport syndrome; D63.8 Anemia in other chronic diseases classified elsewhere; E05.90 Thyrotoxicosis, unspecified without thyrotoxic crisis or storm; Y84.1 Kidney dialysis as the cause of abnormal reaction of the patient, or of later complication, without mention of misadventure at the time of the procedure; F32.9 Major depressive disorder, single episode, unspecified; Z91.15 Patient's noncompliance with renal dialysis; Z68.21 Body mass index [BMI] 21.0-21.9, adult; Z79.899 Other long term (current) drug therapy; Y92.89 Other specified places as the place of occurrence of the external cause
CPT/HCPCS: 10040; 10045; 32100

== ENCOUNTER 2019-06-14 18:48 | Inpatient (IN) | payer OTHER ==
[~2019-06-14] VITALS: Ht 157.5 cm; Wt 55.8 kg
[~2019-06-14 18:48] MED LIST changes: +PAXIL 20 MG TAB20 M1 PO; +REMERON15 MG PO
[2019-06-14 18:56] VITALS: BP 166/95
[2019-06-14 20:09] LABS: MCH 30.4 pg (26.0-34.0); MCV 91.9 fL (80.0-100.0); RBC 1.81 mil/uL (4.20-5.00); RDW 13.8 % (10.5-14.5); WBC 9.4 thou/uL (4.0-11.0)
[2019-06-14 20:12] LABS: HEMATOCRIT 16.6 % (37.0-47.0); HEMOGLOBIN 5.5 gm/dL (12.0-15.0)
[2019-06-14 20:15] LABS: CALCIUM 8.3 mg/dL (8.5-10.1); CREATININE 17.4 mg/dL (0.6-1.0); POTASSIUM 4.7 mmol/L (3.5-5.1)
[2019-06-14 23:23] VITALS: BP 161/93
[2019-06-15] VITALS: BP 181/97
--- NOTE | 2019-06-15 06:12 | NUR ---
PT WAS ADMITTED TO THE UNIT FROM THE ER IN A STABLE CONDITION.PT ALERT AND COOPERATIVE WITH CARE.ADMISSION HX EDUCATION AND ASSESSMENT COMPLETED.PT C/O SOB,O2 SAT AT 97% ON RA ,RX TX GIVEN.PT COMPLAINED THAT HER BED WAS UNCOMFORTABLE,BED CHANGED,PT HAPPY.PT'S BP ON ADMISSION ELEVATED,MANAGED WITH PRN HYDRALAZINE.ON RECHECK,IT WAS STILL HIGH, ONE OF AM HTN MED ADMINISTERED.PT HAS R CHEST CATH FOR HEMODIALYSIS AND L ARM FISTULA.PT ABLE TO MAKE HER NEEDS KNOWN.CALL LIGHT WITHIN REACH.
[2019-06-15 06:36] LABS: MAGNESIUM 1.4 mg/dL (1.8-2.4); PHOSPHORUS 7.4 mg/dL (2.5-4.9)
--- NOTE | 2019-06-15 08:08 | NUR ---
DR. POOL IN EARLY TO SEE PT. PT TO GET HEMODIALYSIS GENA W/ 2 UNITS PRBC'S WHILE ON DIALYSIS. PT IN MILD DISTRESS W/ SOB. BREATHING TX GIVEN WHICH HELPED. OCC HEMOPTYSIS AT TIMES.
[2019-06-15 08:29] VITALS: BP 171/104
--- NOTE | 2019-06-15 10:24 | NUR ---
PT ON HEMODIALYSIS AND HAS 2ND UNIT OF BLOOD FINISHING. RESP EVEN AND LESS LABORED. SBP IN THE 140'S. PT HAS EATEN BREAKFAST AND IS NOW SLEEPING. DR. POOL NOTIFIED IV ANTIBIOTICS TO BE GIVEN AFTER DIALYSIS AND NEW ORDER TO INCREASE FLUID WITHDRAWAL.
[2019-06-15 15:46] VITALS: BP 135/79
--- NOTE | 2019-06-15 17:41 | NUR ---
PT FEELING MUCH BETTER, BREATHING REGULAR AND UNLABORED. FEELS STRONG AND STEADY WHEN OUT OF BED. EATING WELL. MONITORING HER PO FLUIDS. IV ANTIBIOTICS DC'D. PO DOXY STARTED. PLAN FOR DIALYSIS AGAIN IN AM.
[2019-06-15 18:56] VITALS: BP 125/65
--- NOTE | 2019-06-16 01:54 | NUR ---
PT AMBULATING TO BATHROOM INDEPENDENTLY AND IS TOLERATING WELL. DENIES PAIN. DIALYSIS SCHEDULED FOR 06/16. RESTING COMFORTABLY. NO NEEDS VOICED. CALL LIGHT WITHIN REACH. WILL CONTINUE TO PROVIDE FREQUENT OBSERVATION.
[2019-06-16 04:39] LABS: HEMATOCRIT 26.2 % (37.0-47.0); MCH 29.6 pg (26.0-34.0); MCHC 33.2 g/dL (28.0-37.0); MCV 89.1 fL (80.0-100.0); RBC 2.94 mil/uL (4.20-5.00); RDW 14.3 % (10.5-14.5); WBC 7.4 thou/uL (4.0-11.0)
[2019-06-16 04:41] LABS: HEMOGLOBIN 8.7 gm/dL (12.0-15.0)
--- NOTE | 2019-06-16 16:45 | NUR ---
PT ASSESSED AT START OF SHIFT. FEELING AND LOOKS SO MUCH BETTER TODAY. DIALYZED AGAIN THIS AM AND TOLERATED WELL. EATING WELL AND WATCHING HER FLUID INTAKE. TEACHING DONE RE COMPLIANCE TO REMAIN OUT OF HOSPITAL.
[2019-06-16 17:30] VITALS: BP 120/65
[2019-06-16 19:12] VITALS: BP 119/75
[2019-06-16 22:06] LABS: HEP B SURFACE Ab(ANTI-HBS Reactive (()); HEPATITIS B SURFACE AG Negative (Negative)
--- NOTE | 2019-06-17 00:21 | NUR ---
PT AMBULATING IN ROOM INDEPENDENTLY AND IS TOLERATING WELL. DENIES PAIN. PLAN FOR 3RD DAY OF DIALYSIS 06/17. NO NEEDS VOICED. CALL LIGHT WITHIN REACH. WILL CONTINUE TO PROVIDE FREQUENT OBSERVATION.
[2019-06-17 04:08] LABS: HEMOGLOBIN 9.3 gm/dL (12.0-15.0); MCHC 33.3 g/dL (28.0-37.0); RBC 3.11 mil/uL (4.20-5.00); RDW 14.6 % (10.5-14.5); WBC 6.9 thou/uL (4.0-11.0)
[2019-06-17 04:21] LABS: CALCIUM 8.6 mg/dL (8.5-10.1); MAGNESIUM 1.8 mg/dL (1.8-2.4); POTASSIUM 3.7 mmol/L (3.5-5.1)
[2019-06-17 04:31] LABS: CREATININE 5.5 mg/dL (0.6-1.0)
[2019-06-17 08:51] VITALS: BP 136/97
[2019-06-17] MEDS ORDERED: DOXYCYCLINE 10100 M1 PO (14:25)
[2019-06-17 14:37] VITALS: BP 136/97
--- NOTE | 2019-06-17 14:40 | NUR ---
PT ALERT AND ORIENTED TIMES FOUR. VSS, 100%RA. PT C/O BACK PAIN PRN PAIN MEICATIONS GIVEN WITH SOME RELEIF. PT HAD DIALYSIS TODAY NO ISSUES. PT UP AB HEIDI, TOLERATES MEDS AND MEALS. PLANS FOR DISCHARGE TODAY.
--- NOTE | 2019-06-17 16:55 | NUR ---
PT DISCHARGED TODAY TO HOME WITH SELF CARE AND HAS DIALYSIS AT [facility] FAXED DC SUMMARY AND RECEIVED CONFIRMATION.
[2019-06-19 22:06] LABS: ADENOVIRUS Negative (Negative); INFLUENZA A Negative (Negative); INFLUENZA B Negative (Negative); METAPNEUMOVIRUS Negative (Negative); PARAINFLUENZA 1 Negative (Negative); PARAINFLUENZA 2 Negative (Negative); PARAINFLUENZA 3 Negative (Negative); RHINOVIRUS Negative (Negative); RSV A Negative (Negative); RSV B Negative (Negative)
== END 2019-06-17 15:31 | disposition home or self-care (01) | DRG 640 ==
LOC: ER 18:48 → 4S 23:11 → EROBS 23:11 → 4S 23:47
PROVIDERS: Emergency Medicine; Hospitalist; Internal Medicine; Nurse Practitioner Acute Care; ADMIT Hospitalist
PROC: 30233N1 Transfusion of Nonautologous Red Blood Cells into Peripheral Vein, Percutaneous Approach (ICD-10-PCS; principal; 2019-06-15)
PROC: 5A1D70Z Performance of Urinary Filtration, Intermittent, Less than 6 Hours Per Day (ICD-10-PCS; principal; 2019-06-15)
PROC: 5A1D70Z Performance of Urinary Filtration, Intermittent, Less than 6 Hours Per Day (ICD-10-PCS; 2019-06-17)
DX: E87.79 Other fluid overload (principal); N18.6 End stage renal disease; K65.9 Peritonitis, unspecified; I12.0 Hypertensive chronic kidney disease with stage 5 chronic kidney disease or end stage renal disease; R04.2 Hemoptysis; Q87.81 Alport syndrome; F17.210 Nicotine dependence, cigarettes, uncomplicated; E05.90 Thyrotoxicosis, unspecified without thyrotoxic crisis or storm; D63.8 Anemia in other chronic diseases classified elsewhere; Z79.899 Other long term (current) drug therapy; Z91.15 Patient's noncompliance with renal dialysis
CPT/HCPCS: 10195; 32100

== ENCOUNTER 2019-06-29 00:05 | Inpatient (IN) | payer OTHER ==
[~2019-06-29] VITALS: Ht 157.5 cm; Wt 56.2 kg
[2019-06-29] VITALS (8 sets, daily range): BP systolic 149–179; BP diastolic 93–134
[~2019-06-29 00:05] MED LIST changes: +DOXYCYCLINE 10100 M1 PO
[2019-06-29 00:40] LABS: ABSOLUTE NEUTROPHILS 6.2 thou/uL (1.4-8.2); HEMOGLOBIN 6.7 gm/dL (12.0-15.0); MCH 29.6 pg (26.0-34.0); MCHC 32.9 g/dL (28.0-37.0); WBC 8.3 thou/uL (4.0-11.0)
[2019-06-29 00:42] LABS: BASOPHILS 0.7 % (0.0-2.0); EOSINOPHILS 3.7 % (0.0-3.0); HEMATOCRIT 20.3 % (37.0-47.0); LYMPHOCYTES 14.2 % (24.0-44.0); MONOCYTES 6.6 % (1.0-8.0); PLATELET COUNT 110 thou/uL (150-400); POLYS 74.8 % (36.0-66.0); RBC 2.26 mil/uL (4.20-5.00)
[2019-06-29 00:50] LABS: ANION GAP 20 mmol/L (7-16); BUN 88 mg/dL (7-18); CALCIUM 7.9 mg/dL (8.5-10.1); CHLORIDE 98 mmol/L (98-107); CO2 18 mmol/L (21-32); CREATININE 20.7 mg/dL (0.6-1.0); GLUCOSE 122 mg/dL (74-106); POTASSIUM 3.9 mmol/L (3.5-5.1); SODIUM 136 mmol/L (136-145)
[2019-06-29] MEDS ORDERED: NORCO 5-325 TA1 EAC1 (00:52)
[2019-06-29 00:56] LABS: TROPONIN-I <0.06 ng/mL (<0.06)
[2019-06-29 01:14] LABS: HYPOCHROMASIA 1+; LARGE PLATELETS RARE; MICROCYTES 1+
--- NOTE | 2019-06-29 05:10 | NUR ---
PT WAS AN ER ADMIT. PT WAS ADMITTED WITH ANEMIA AND NON-COMPLIANCE WITH DIALYSIS.PT IS ALERT AND ORIENTED. NO FAMILY AT BEDSIDE. PT IS STABLE. NO SIGN OF DISTRESS NOTED IN PT. VITAL SIGNS STABLE. PATIENT IS SINUS TACHYCARDIA. ELEVATED BLOOD PRESSURE UPON ADMISSION. ADMISSION ASSESSMENT AND EDUCATION DONE. WAITING ON BLOOD TRANSFUSION. PT DENIES PAIN, SOB. CONTINUE TO MONITOR. DENIES ANY FURTHER NEEDS AT THIS TIME.
--- NOTE | 2019-06-29 11:05 | EKG ---
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 rn : 1985 Requested By: Perfecto Mendez Order Number: [id number] MD: José Antonio Bloom Measurements Intervals [place] Rate: 108 P: 5 PA: 134 QRS: 39 QRSD: 83 T: 55 QT: 360 QTc: 483 Interpretive Statements Sinus tachycardia Borderline prolonged QT interval Compared to ECG 11/28/2017 23:17:04 Sinus rhythm no longer present Short PA interval no longer present low left IN so I believe she is a IV oral lesions in atrial paced rhythm Electronically Signed On 06-29-2019 11:05:41 [employer] by José Antonio Bloom [email or web address] <ELECTRONICALLY SIGNED> By: José Antonio Bloom MD 06/29/19 1105 0045 0045 José Antonio Bloom MD /BERENICE
--- NOTE | 2019-06-29 13:20 | NUR ---
RECEIVED PT'S CARE AROUND 0700; PT. ON BED; AOX4; WATCHING TV; DURING ASSESSMENT NO C/O PAIN; BLOOD PRESSURE MEDICATION HOLD DURING THE MORNING DUE TO DIALYSIS; GIVEN AFTER DIALYSIS; NO C/O DIZZINESS; NO SOB; NO ABDOMINAL PAIN; IN THE MORNING PENDING 1 PACK RBC; PER DR. HUNTER VERBAL ORDER AFTER PT. RECEIVED BLOOD TRANSFUSION PT. CAN BE D/C; AROUND NOON BLOO READY TO BE TRANSFUSED; PT. ON DIALYSIS; BLOOD GIVEN BY DIALYSIS; DISCHARGED PERFORMED; ASSESSMENT CHARGED; FOLLOWED POC;
== END 2019-06-29 14:43 | disposition home or self-care (01) | DRG 811 ==
LOC: ER 00:05 → EROBS 01:16 → 2N 01:40
PROVIDERS: Emergency Medicine; ADMIT Internal Medicine
PROC: 30233N1 Transfusion of Nonautologous Red Blood Cells into Peripheral Vein, Percutaneous Approach (ICD-10-PCS; principal; 2019-06-29)
PROC: 5A1D70Z Performance of Urinary Filtration, Intermittent, Less than 6 Hours Per Day (ICD-10-PCS; 2019-06-29)
DX: D64.9 Anemia, unspecified (principal); N18.6 End stage renal disease; I12.0 Hypertensive chronic kidney disease with stage 5 chronic kidney disease or end stage renal disease; N17.9 Acute kidney failure, unspecified; Q87.81 Alport syndrome; E87.70 Fluid overload, unspecified; F17.210 Nicotine dependence, cigarettes, uncomplicated; E05.90 Thyrotoxicosis, unspecified without thyrotoxic crisis or storm; Z99.2 Dependence on renal dialysis; Z91.19 Patient's noncompliance with other medical treatment and regimen; Z91.15 Patient's noncompliance with renal dialysis; Z79.899 Other long term (current) drug therapy
CPT/HCPCS: 10081; 32100